=== PATIENT | female | born 1985 | race Caucasian/White ===

== ENCOUNTER 2018-11-22 11:02 | Emergency (ER) | payer OTHER ==
[~2018-11-22] VITALS: Ht 172.7 cm; Wt 127.0 kg
[~2018-11-22 11:02] MED LIST: ACETAMINOPHEN-1 EAC1 PO; BUSPIRONE HCL10 MG PO; CYCLOBENZAPRINE5 MG PO; FLEXERIL PO; HYDROCODON-ACE1 EAC7 PO; HYDROCODONE-APA1 TA1 PO; IBUPROFEN 800800 M1 PO; LEVOTHYROXIN0.025 MG PO; LIORESAL 10 MG10 MG; MEDROLDOSEPACK PO; MOBIC7.5 MG; NOHOMEMEDICATIONS; NORCO 5-325 TA1 EAC1 PO; NORCO 5-325 TA1 EACH PO; PENICILLIN VK250 MG PO; PREDNISONE 10 M10 MG PO; PROZAC20 MG PO; VENLAFAXIN75 MG/1 T2 PO
[2018-11-22] MEDS ORDERED: VISTARIL 25 MG25 M1 PO (11:11)
[2018-11-22] MEDS ORDERED: IBUPROFEN 800800 M1 PO (11:12)
[2018-11-22] MEDS ORDERED: RISPERIDONE ODT2 MG PO (11:12)
[2018-11-22] MEDS ORDERED: ZANAFLEX4 MG PO (11:23)
[2018-11-22] MEDS ORDERED: NORCO 5-325 TA1 EAC1 PO (11:23)
[2018-11-22 11:30] VITALS: BP 132/87
== END 2018-11-22 11:30 | disposition home or self-care (01) ==
LOC: M.ERS 11:02
DX: S39.012A Strain of muscle, fascia and tendon of lower back, initial encounter (principal); M54.41 Lumbago with sciatica, right side; M77.9 Enthesopathy, unspecified; Z90.49 Acquired absence of other specified parts of digestive tract; Z98.51 Tubal ligation status; Z88.6 Allergy status to analgesic agent; X50.9XXA Other and unspecified overexertion or strenuous movements or postures, initial encounter; Y93.89 Activity, other specified; Y92.89 Other specified places as the place of occurrence of the external cause; Y99.8 Other external cause status

== ENCOUNTER 2020-05-20 09:06 | Emergency (ER) | payer OTHER ==
[~2020-05-20] VITALS: Ht 172.7 cm; Wt 147.4 kg
[~2020-05-20 09:06] MED LIST changes: +RISPERIDONE ODT2 MG PO; +VISTARIL 25 MG25 M1 PO; +ZANAFLEX4 MG PO
[2020-05-20] MEDS ORDERED: BACTRIM DS TAB1 EAC1 PO (09:33)
[2020-05-20 09:45] VITALS: BP 150/106
== END 2020-05-20 09:45 | disposition home or self-care (01) ==
LOC: M.ERS 09:06
DX: L73.9 Follicular disorder, unspecified (principal); F17.210 Nicotine dependence, cigarettes, uncomplicated; Z90.49 Acquired absence of other specified parts of digestive tract; Z98.51 Tubal ligation status; Z79.899 Other long term (current) drug therapy; Z88.8 Allergy status to other drugs, medicaments and biological substances; Z88.6 Allergy status to analgesic agent

== ENCOUNTER 2021-03-28 10:37 | Emergency (ER) | payer OTHER ==
[~2021-03-28] VITALS: Ht 172.7 cm; Wt 136.1 kg
[~2021-03-28 10:37] MED LIST changes: +BACTRIM DS TAB1 EAC1 PO
[2021-03-28] MEDS ORDERED: GLUMETZA1000 PO (11:24)
[2021-03-28 12:42] VITALS: BP 124/70
[2021-03-28] MEDS ORDERED: ZPAK PO (12:42)
[2021-03-28] MEDS ORDERED: PREDNISONE 20 M20 M1 PO (12:42)
[2021-03-28] MEDS ORDERED: VENTOLIN HFA 1818 GM INH (12:42)
== END 2021-03-28 12:47 | disposition home or self-care (01) ==
LOC: M.ERS 10:37
DX: U07.1 COVID-19 (principal); F17.210 Nicotine dependence, cigarettes, uncomplicated; Z90.49 Acquired absence of other specified parts of digestive tract; Z98.51 Tubal ligation status; Z79.899 Other long term (current) drug therapy; Z88.8 Allergy status to other drugs, medicaments and biological substances; Z88.6 Allergy status to analgesic agent